=== PATIENT | male | born 1960 | race Caucasian/White ===

== ENCOUNTER 2019-12-26 12:18 | Emergency (ER) | payer SELFPAY ==
[~2019-12-26] VITALS: Ht 180.3 cm; Wt 104.5 kg
--- NOTE | 2019-12-26 13:29 | RAD ---
AP portable chest 12/26/2019. Reason for exam: Cough and congestion for a week. No infiltrate or effusion is seen. Heart size and pulmonary vascularity appear normal. IMPRESSION: No acute disease. Electronically signed by: Alex Buckley Jr., MD (12/26/2019 1:26 PM) [facility]mma
[2019-12-26 13:49] LABS: BASO # 0.1 x10^3/uL (0.0-0.2); BASO % 1 % (0-3); EOS # 0.1 x10^3/uL (0.0-0.7); EOS % 1 % (0-3); HEMATOCRIT 47.9 % (39.0-53.0); HEMOGLOBIN 16.5 g/dL (13.0-17.5); LYMPH # 1.6 x10^3/uL (1.0-4.8); LYMPH % 22 % (24-48); MEAN CORPUSCULAR HEMOGLOBIN 32 pg (25-35); MEAN CORPUSCULAR HGB CONC 35 g/dL (31-37); MEAN CORPUSCULAR VOLUME 92 fL (79-100); MONO # 0.7 x10^3/uL (0.0-1.1); MONO % 10 % (0-9); NEUT # 4.8 x10^3/uL (1.8-7.7); NEUT % 66 % (31-73); PLATELET COUNT 293 x10^3/uL (140-400); RED BLOOD COUNT 5.19 x10^6/uL (4.30-5.70); RED CELL DISTRIBUTION WIDTH 13.3 % (11.5-14.5); WHITE BLOOD COUNT 7.3 x10^3/uL (4.0-11.0)
[2019-12-26 13:58] LABS: CALCIUM 9.1 mg/dL (8.5-10.1); CREATININE 1.2 mg/dL (0.7-1.3); GFR 62.4; POTASSIUM 4.4 mmol/L (3.5-5.1)
[2019-12-26 14:03] LABS: ALBUMIN/GLOBULIN RATIO 1.1 (1.0-1.7); MAGNESIUM 2.3 mg/dL (1.8-2.4); TOTAL PROTEIN 7.8 g/dL (6.4-8.2)
[2019-12-26 14:58] VITALS: BP 167/95
[2019-12-26] MEDS ORDERED: FLUT9.9S NS (15:18)
--- NOTE | 2019-12-26 15:18 | PHYS DOC ---
Past Medical History Past Medical History: No Pertinent History Past Surgical History: No Surgical History Smoking Status: Never Smoker Alcohol Use: None General Adult EDM: Chief Complaint: CHEST PAIN-NON CARDIAC NATURE HPI: HPI: Patient is a 59 year old male with no significant medical history who presents to the ED today complaining of nasal congestion for 20 years. Patient denies any cough. He states he has occasional shortness of breath and what he describes as chest pressure/chest congestion for 1-1/2 weeks. Denies any chest pain. Denies anything specifically exacerbating or relieving his symptoms. He states his nasal congestion was his most concerning symptoms because he is using Mucinex with no relief. Denies any fever. Denies any exposure to COVID19 patient. Patient denies any chest pressure in the ED. Review of Systems: Review of Systems: Constitutional: Denies fever or chills. [] Eyes: Denies change in visual acuity. [] HENT: Reports nasal congestion, denies sore throat. [] Respiratory: Reports shortness of breath, denies coughing [] Cardiovascular: Denies chest pain or edema. [] GI: Denies abdominal pain, nausea, vomiting, bloody stools or diarrhea. [] : Denies dysuria. [] Musculoskeletal: Denies back pain or joint pain. [] Integument: Denies rash. [] Neurologic: Denies headache, focal weakness or sensory changes. [] Psychiatric: Denies depression or anxiety. [] Heart Score: HEART Score for Chest Pain: HEART Score for Chest Pain Response (Comments) Value History Slighlty/Non-Suspicious 0 ECG Normal 0 Age >45 - < 65 1 Risk Factors No Risk Factors 0 Troponin < Normal Limit 0 Total 1 Risk Factors: Risk Factors: DM, Current or recent (<one month) smoker, HTN, HLP, family history of CAD, obesity. Risk Scores: Score 0 - 3: 2.5% MACE over next 6 weeks - Discharge Home Score 4 - 6: 20.3% MACE over next 6 weeks - Admit for Clinical Observation Score 7 - 10: 72.7% MACE over next 6 weeks - Early Invasive Strategies Allergies: Allergies: Allergies Coded Allergies Type Severity Reaction Last Updated Verified No Known Drug Allergies 12/26/19 No Physical Exam: PE: Constitutional: Well developed, well nourished, no acute distress, non-toxic appearance. [] HENT: Normocephalic, atraumatic, bilateral external ears normal, oropharynx moist, no oral exudates, nose normal. [] Eyes: PERRLA, EOMI, conjunctiva normal, no discharge. [] Neck: Normal range of motion, no tenderness, supple, no stridor. [] Cardiovascular:Heart rate regular rhythm, no murmur [] Lungs & Thorax: Bilateral breath sounds clear to auscultation [] Abdomen: Bowel sounds normal, soft, no tenderness, no masses, no pulsatile masses. [] Skin: Warm, dry, no erythema, no rash. [] Back: No tenderness, no CVA tenderness. [] Extremities: No tenderness, no cyanosis, no clubbing, ROM intact, no edema. [] Neurologic: Alert and oriented X 3, normal motor function, normal sensory function, no focal deficits noted. Cranial nerves II through XII intact Psychologic: Affect normal, judgement normal, mood normal. [] Current Patient Data: Labs: Laboratory Tests Test 12/26/19 13:36 White Blood Count 7.3 x10^3/uL (4.0-11.0) Red Blood Count 5.19 x10^6/uL (4.30-5.70) Hemoglobin 16.5 g/dL (13.0-17.5) Hematocrit 47.9 % (39.0-53.0) Mean Corpuscular Volume 92 fL (79-100) Mean Corpuscular Hemoglobin 32 pg (25-35) Mean Corpuscular Hemoglobin Concent 35 g/dL (31-37) Red Cell Distribution Width 13.3 % (11.5-14.5) Platelet Count 293 x10^3/uL (140-400) Neutrophils (%) (Auto) 66 % (31-73) Lymphocytes (%) (Auto) 22 % (24-48) L Monocytes (%) (Auto) 10 % (0-9) H Eosinophils (%) (Auto) 1 % (0-3) Basophils (%) (Auto) 1 % (0-3) Neutrophils # (Auto) 4.8 x10^3/uL (1.8-7.7) Lymphocytes # (Auto) 1.6 x10^3/uL (1.0-4.8) Monocytes # (Auto) 0.7 x10^3/uL (0.0-1.1) Eosinophils # (Auto) 0.1 x10^3/uL (0.0-0.7) Basophils # (Auto) 0.1 x10^3/uL (0.0-0.2) Sodium Level 140 mmol/L (136-145) Potassium Level 4.4 mmol/L (3.5-5.1) Chloride Level 102 mmol/L (98-107) Carbon Dioxide Level 28 mmol/L (21-32) Anion Gap 10 (6-14) Blood Urea Nitrogen 10 mg/dL (8-26) Creatinine 1.2 mg/dL (0.7-1.3) Estimated GFR (Cockcroft-Gault) 62.4 BUN/Creatinine Ratio 8 (6-20) Glucose Level 99 mg/dL (70-99) Calcium Level 9.1 mg/dL (8.5-10.1) Magnesium Level 2.3 mg/dL (1.8-2.4) Total Bilirubin 1.0 mg/dL (0.2-1.0) Aspartate Amino Transferase (AST) 20 U/L (15-37) Alanine Aminotransferase (ALT) 39 U/L (16-63) Alkaline Phosphatase 90 U/L (46-116) Creatine Kinase 130 U/L (39-308) Creatine Kinase MB (Mass) 1.6 ng/mL (0.0-3.6) Creatine Kinase MB Relative Index 1.2 % (0-4) Troponin I Quantitative < 0.017 ng/mL (0.000-0.055) FA-Rry-W-Type Natriuretic Peptide 23 pg/mL (0-124) Total Protein 7.8 g/dL (6.4-8.2) Albumin 4.0 g/dL (3.4-5.0) Albumin/Globulin Ratio 1.1 (1.0-1.7) Thyroid Stimulating Hormone (TSH) 2.210 uIU/mL (0.358-3.74) Laboratory Tests 12/26/19 13:36 Laboratory Tests 12/26/19 13:36 Vital Signs: Vital Signs Date Time Temp Pulse Resp B/P (MAP) Pulse Ox O2 Delivery O2 Flow Rate FiO2 12/26/19 14:28 74 172/93 (119) 97 Room Air 12/26/19 12:44 99.0 17 99.0 EKG: EKG: [] Radiology/Procedures: Radiology/Procedures: []PROCEDURE: CHEST AP ONLY AP portable chest 12/26/2019. Reason for exam: Cough and congestion for a week. No infiltrate or effusion is seen. Heart size and pulmonary vascularity appear normal. IMPRESSION: No acute disease. Electronically signed by: Sushant Fournier Jr., MD (12/26/2019 1:26 PM) [facility] DICTATED and SIGNED BY: SUSHANT FOURNIER Jr, MD DATE: 12/26/19 1323 Course & Med Decision Making: Course & Med Decision Making Pertinent Labs and Imaging studies reviewed. (See chart for details) This is a 59-year-old male patient with no significant medical history presenting to the ED today with multiple complaints including nasal congestion for 20 years, some shortness of breath and chest pressure for 1-1/2 weeks though he denies any chest pressure in the ED, denies any chest pain. Heart score 1. Chest x-ray, cardiac work-up negative. O2 sats of been 99% on room air. Patient was tested for COVID19. Results will be called to him. He was discharged to home with instructions to quarantine self. He states he has an appointment with his own PCP next week. Dragon Disclaimer: Dragon Disclaimer: This electronic medical record was generated, in whole or in part, using a voice recognition dictation system. Departure Departure Impression: Primary Impression: Nasal congestion Additional Impression: Person under investigation for COVID-19 Disposition: HOME, SELF-CARE Condition: STABLE Referrals: BRIA YBRD MD (PCP) follow up next week Patient Instructions: Upper Respiratory Infection, Adult, [id number] Additional Instructions: Your work-up in the emergency room was negative for any acute findings. We tested you for COVID19. We will call you as soon as the results come back. In the meantime quarantine yourself. Maintain good hand hygiene. Scripts Fluticasone Propionate (Flonase Allergy Relief) 9.9 Ml [place].susp 2 SPRAYS NS DAILY, #1 BOTTLE Prov: RINA CUETO CHIQUITA 12/26/19 Justicifation of Admission Dx: Justifications for Admission: Justification of Admission Dx: N/A RINA CUETO APRN Dec 26, 2019 15:18
--- NOTE | 2019-12-27 15:21 | EKG ---
[facility] [address] [place] [address] Test Date: 2019-12-26 Test Time: 12:49:04 Pat Name: SHERRI CUNNINGHAM Department: Room: Gender: M Studio Engineer: : [id number] Requested By: RINA CUETO Order Number: [id number] Reading MD: Measurements Intervals [place] Rate: 69 P: 25 [place]: 174 QRS: -12 QRSD: 90 T: -1 QT: 362 QTc: 389 Interpretive Statements SINUS RHYTHM LEFTWARD AXIS OTHERWISE NORMAL ECG RI6.01 No previous ECG available for comparison
--- NOTE | 2019-12-27 16:56 | NUR ---
Unable to reach patient to communicate negative Covid test - no number on file. (Sandra Carr, RN)
== END 2019-12-26 15:29 | disposition home or self-care (01) ==
LOC: ER 12:18
DX: R09.81 Nasal congestion (principal); Z20.828 Contact with and (suspected) exposure to other viral communicable diseases; R07.89 Other chest pain; R06.02 Shortness of breath
CPT/HCPCS: 36415; 71045; 80053; 82553; 83735; 83880; 84443; 84484; 85025; 93005; 99285; U0003

== ENCOUNTER → 2020-07-06 | Outpatient (CLI) | payer OTHER ==
[~2020-07-06] MED LIST: FLUT9.9S NS
--- NOTE | 2020-07-06 12:23 | RAD ---
XR CHEST 2V INDICATION: SHORTNESS OF BREATH COMPARISON STUDY: 12/26/2019. FINDINGS: Lungs: Normal lung volume. No pulmonary mass or consolidation. The tracheobronchial tree and hilar st ructures are normal. Pleura: No pleural effusion or pneumothorax. Heart and Mediastinum: The cardiomediastinal silhouette is normal. Tortuosity of the thoracic aorta. Bones and Soft Tissues: Left convex thoracic curvature. IMPRESSION: No acute cardiopulmonary process. Electronically signed by: Agustin Browning MD (07/06/2020 12:21 PM) [id number]
== END ==
LOC: RAD 10:04
PROVIDERS: ATTEND Nurse Practitioner Primary Care
DX: R06.02 Shortness of breath (principal)
CPT/HCPCS: 71046

== ENCOUNTER → 2020-08-09 | Outpatient (CLI) | payer OTHER ==
[~2020-08-09] MED LIST changes: +CONTRAST GIVEN. MC PRN; +IOHEXOL 240 MG/ML 50ML VIAL. PO ONE; +IOHEXOL 300 MG/ML 100ML VIAL. IV ONE
--- NOTE | 2020-08-09 16:37 | RAD ---
EXAM: Abdomen and pelvis CT with intravenous contrast. HISTORY: Blood in stool. TECHNIQUE: Computed tomographic images of the abdomen and pelvis were obtained following the administ ration of intravenous contrast. Multiplanar reformatting was performed. *One or more of the following individualized dose reduction techniques were utilized for this examina tion: 1. Automated exposure control. 2. Adjustment of the mA and/or kV according to patient size. 3. Use of iterative reconstruction technique. COMPARISON: None. FINDINGS: Evaluation of the lower thorax demonstrates left greater than right lower lobe atelectasis. There is a calcified granuloma within the right lower lobe. The heart is normal in size. No suspicio us hepatic lesion is seen. The gallbladder, pancreas, stomach and adrenal glands are unremarkable. Th ere are splenule within the normal sized spleen. No suspicious renal lesion or hydronephrosis is. The re is no appendicitis. There is no bowel obstruction. There is no abnormal bowel wall thickening. The bladder and prostate are unremarkable. The aorta is normal in caliber. There is no lymphadenopathy. There is thoracolumbar scoliosis. There are degenerative changes predominantly at the lower lumbar le vels. There is no acute osseous finding. IMPRESSION: No acute abdominal or pelvic finding. Electronically signed by: Bridget aRmey MD (08/09/2020 4:35 PM) [id number]
== END ==
LOC: CT 10:54
PROVIDERS: ATTEND Nurse Practitioner Primary Care
DX: K92.1 Melena (principal)
CPT/HCPCS: 74177; Q9966; Q9967